=== PATIENT | male | born 1975 | race Two or more races ===

== ENCOUNTER 2019-10-08 09:11 | Emergency (ER) | payer SELFPAY ==
[~2019-10-08] VITALS: Ht 172.7 cm; Wt 73.5 kg
[2019-10-08 09:20] VITALS: BP 131/81
--- NOTE | 2019-10-08 09:20 | NUR ---
ED Nurse Note: Patient walked into ED from home c/o flu-like s/s for 1 week. Patient denies recent travel. Has productive cough. No s/s of acute distress. Patient on the pediatric licensed practical nurse, bed in lowest position.
--- NOTE | 2019-10-08 09:45 | Emergency Room Report ---
History of Present Illness General Chief Complaint: Flu Like Symptoms Source: Patient Present Illness HPI Patient is a 44-year-old male who presents after increased nonproductive cough as well as generalized body aches. Reports having onset of symptoms 1 day prior to arrival. Reports having some dysuria as well as subjective fever. Denies any vomiting. Reports having increased sore throat. Denies any prior medical history. He taken [id number]-[id number] cough medications without any improvement. Allergies: Coded Allergies: No Known Allergies (Unverified , 10/08/19) Patient History Past Medical History: see triage record Reviewed Nursing Documentation: PMH: Agreed; PSxH: Agreed Nursing Documentation-PMH Past Medical History: No Stated History Review of Systems All Other Systems: negative except mentioned in HPI Physical Exam Vital Signs Date Time Temp Pulse Resp B/P (MAP) Pulse Ox O2 Delivery O2 Flow Rate FiO2 10/08/19 09:15 100.4 125 19 131/81 (98) 95 Room Air Sp02 EP Interpretation: reviewed, normal General Appearance: normal inspection, well appearing, no apparent distress, alert, GCS 15 Head: atraumatic ENT: normal ENT inspection, hearing grossly normal, normal voice Neck: normal inspection, full range of motion, supple, no bony tend Respiratory: normal inspection, lungs clear, normal breath sounds, no respiratory distress, no retraction, no wheezing Cardiovascular #1: regular rate, rhythm, no edema Gastrointestinal: normal inspection, normal bowel sounds, non tender, soft, no guarding, no hernia Genitourinary: no CVA tenderness Musculoskeletal: normal inspection, back normal, normal range of motion Neurologic: alert, motor strength/tone normal, sports editor III-XII nml as tested, responsive, speech normal, normal inspection Psychiatric: normal inspection, judgement/insight normal, mood/affect normal Medical Decision Making Diagnostic Impression: Primary Impression: Influenza-like illness ER Course Patient presented for sore throat and body aches. Differential diagnosis include was not limited to strep pharyngitis, viral infection, influenza, urinary tract infection among others. Patient has a benign exam and does not appear to require any imaging or laboratory testing at this time. Patient appears to have a viral illness which is likely influenza. Patient has no recent travel. He does not appear to have any evidence of significant erythema to his oropharynx. Urinalysis was ordered due to patient's complaint of dysuria. He was given antipyretic. Patient is able to take oral fluids. Patient's laboratory testing showed positive for influenza. Patient was given prescription for Tamiflu. Patient had improvement in his symptoms after antipyretics e is advised to return if any worsening condition or other concerns. Labs Test 10/08/19 10:00 Urine Color Yellow Urine Appearance Slightly cloudy Urine pH 6 (4.5-8.0) Urine Specific [place] 1.015 (1.005-1.035) Urine Protein 2+ (NEGATIVE) Urine Glucose (UA) Negative (NEGATIVE) Urine Ketones 2+ (NEGATIVE) Urine Blood 3+ (NEGATIVE) Urine Nitrite Negative (NEGATIVE) Urine Bilirubin Negative (NEGATIVE) Urine Urobilinogen Normal MG/DL (0.0-1.0) Urine Leukocyte Esterase Negative (NEGATIVE) Urine RBC 10-15 /HPF (0 - 0) Urine WBC 0-2 /HPF (0 - 0) Urine Squamous Epithelial Cells Occasional /LPF Urine Bacteria Occasional /HPF (NONE) Last Vital Signs Date Time Temp Pulse Resp B/P (MAP) Pulse Ox O2 Delivery O2 Flow Rate FiO2 10/08/19 09:15 100.4 125 19 131/81 (98) 95 Room Air Status: improved Disposition: HOME, SELF-CARE Condition: Stable Scripts Guaifenesin/Dextromethorphan* (Guaifenesin Dm Syrup*) 5 Ml Syrup 5 ML ORAL Q8H PRN for FOR COUGH, #118 ML 0 Refills Prov: Gorge Hallman MD 10/08/19 Ibuprofen* (MOTRIN*) 600 Mg Tablet 600 MG ORAL Q8H PRN for For Pain, #30 TAB 0 Refills Prov: Gorge Hallman MD 10/08/19 Oseltamivir Phosphate (Tamiflu) 75 Mg Capsule 75 MG ORAL TWICE A DAY, #10 CAP Prov: Gorge Hallman MD 10/08/19 Referrals: NOT CHOSEN IPA/,REFERRING (PCP) Gorge Hallman MD Oct 08, 2019 09:44
[2019-10-08 10:25] LABS: APPEARANCE,URINE SLIGHTLY CLOUDY; BILIRUBIN, URINE NEGATIVE (NEGATIVE); GLUCOSE, URINE (UA) NEGATIVE (NEGATIVE); KETONES,URINE 2+ (NEGATIVE); LEUKOCYTE ESTERASE ,URINE NEGATIVE (NEGATIVE); NITRITE,URINE NEGATIVE (NEGATIVE); PH,URINE 6 (4.5-8.0); PROTEIN,URINE 2+ (NEGATIVE); UROBILINOGEN,URINE NORMAL MG/DL (0.0-1.0)
[2019-10-08 10:52] LABS: COLOR,URINE YELLOW
[2019-10-08] MEDS ORDERED: Oseltamivir 75mg cap ORAL ONE (11:00)
[2019-10-08] MEDS ORDERED: TAMIFLU75 MG ORAL (11:16)
[2019-10-08] MEDS ORDERED: GUAIFENESIN DM118 M1 ORAL (11:16)
[2019-10-08] MEDS ORDERED: IBUPROFEN600 MG ORAL (11:16)
[2019-10-08 11:31] VITALS: BP 126/80
--- NOTE | 2019-10-08 11:31 | NUR ---
ER DISCHARGE NOTE: Patient is cleared to be discharged per ERMD, pt is aox4, on room air, with stable vital signs. pt was given dc and prescription instructions, pt was able to verbalize understanding, pt id band removed. pt is able to ambulate with steady gait. pt took all belongings. Pt instructed on prescr.
== END 2019-10-08 11:31 | disposition home or self-care (01) ==
LOC: EMR 09:30
DX: R05 Cough (principal); R07.0 Pain in throat; R30.0 Dysuria; R50.9 Fever, unspecified
CPT/HCPCS: 81001; 86710; 99283